=== PATIENT | male | born 1960 | race African-American/Black ===

== ENCOUNTER 2018-10-14 16:48 | Inpatient (IN) | payer MEDICAID ==
[~2018-10-14] VITALS: Ht 193 cm; Wt 95.7 kg
[~2018-10-14 16:48] MED LIST: DIAZ10TA PO; FLUT1DIS3 IH; OXYC-662 PO; PHEN100C4 PO; S350 PO
[2018-10-14] MEDS ORDERED: SODIUM CHLORIDE 0.9% 1,000 ML IV ONE (18:45)
[2018-10-14 19:03] LABS: BASOPHILS % 0.6 % (0.0-2.0); EOSINOPHILS % 7.3 % (0.0-5.0); HEMOGLOBIN. 9.5 g/dL (14.0-18.0); LYMPHOCYTES % 38.1 % (20.0-50.0); MEAN CORPUSCULAR HEMOGLOBIN 36.3 pg (28.0-32.0); MEAN CORPUSCULAR VOLUME 107.5 fL (80.0-94.0); MONOCYTES % 12.9 % (2.0-8.0); NEUTROPHILS % 41.1 % (40.0-76.0); PLATELET 160 x1000/uL (130-400); RED BLOOD CELL COUNT 2.61 mill/uL (4.7-6.1); RED CELL DISTRIBUTION WIDTH 15.4 % (11.6-14.6)
[2018-10-14 19:09] LABS: CHLORIDE 109 mEq/L (98-107)
[2018-10-14 19:13] LABS: ETHANOL BLOOD < 10 mg/dL
[2018-10-14 19:14] LABS: INR 1.1; PARTIAL THROMBOPLASTIN TIME 30.6 sec (23.4-31.0); PROTHROMBIN TIME 11.8 sec (9.6-11.0)
[2018-10-14 19:40] LABS: CLARITY URINE CLOUDY (CLEAR); COLOR URINE YELLOW (YELLOW); KETONES URINE NEGATIVE (NEGATIVE); LEUKOCYTE ESTERASE URINE 3+ (NEGATIVE); NITRITE URINE POSITIVE (NEGATIVE); OCCULT BLOOD URINE TRACE (NEGATIVE); PH URINE 6.5 (4.5-8.0); PROTEIN URINE 2+ (NEGATIVE); SPECIFIC GRAVITY URINE 1.013 (1.005-1.030); UROBILINOGEN URINE 0.2 E.U./dL (0.2-1.0)
[2018-10-14 19:41] LABS: CARBAMAZEPINE < 0.5 ug/mL (4-12); PHENOBARBITAL < 2.1 ug/mL (15.0-40.0)
[2018-10-14] MEDS ORDERED: CEFTRIAXONE 1 G PREMIX 50 ML IV ONE (20:45)
[2018-10-14] MEDS ORDERED: NA PHOS,M-B/NA PHOS,DI-BA ENEMA 118ML PR PRN (23:45)
[2018-10-14] MEDS ORDERED: ACETAMINOPHEN 325MG TABLET PO PRN (23:45)
[2018-10-14] MEDS ORDERED: MAGNESIUM/ALUMINUM HYDROXIDE/SIMETHICONE 30ML UDC PO PRN (23:45)
[2018-10-14] MEDS ORDERED: ONDANSETRON HCL 4MG/2ML INJ IV PRN (23:45)
[2018-10-14] MEDS ORDERED: IPRATROPIUM/ALBUTEROL 0.5-3(2.5)MG/3ML NEB INH PRN (23:45)
[2018-10-14] MEDS ORDERED: ACETAMINOPHEN 650MG SUPP PR PRN (23:45)
[2018-10-14] MEDS ORDERED: DOCUSATE SODIUM 100MG CAPSULE PO PRN (23:45)
[2018-10-14] MEDS ORDERED: GUAIFENESIN 200MG/10ML SUGAR FREE UDC PO PRN (23:45)
[2018-10-14] MEDS ORDERED: DIPHENHYDRAMINE 50MG/ML VIAL IV PRN (23:45)
[2018-10-14] MEDS ORDERED: ACETAMINOPHEN 650MG/20.3ML UDC GT PRN (23:45)
[2018-10-14] MEDS ORDERED: CEFTRIAXONE 1 G PREMIX 50 ML IV SCH (23:45)
[2018-10-15 02:10] VITALS: BP 170/100
[2018-10-15] MEDS: CLONIDINE 0.1MG TABLET PO PRN ×2 (03:49→23:55)
[2018-10-15 04:00] VITALS: BP 126/85
[2018-10-15] MEDS ORDERED: SODIUM CHLORIDE 0.45% 1,000 ML IV SCH (04:30)
[2018-10-15] MEDS ORDERED: FERR325T6 PO (04:39)
[2018-10-15] MEDS ORDERED: AMIT75TA2 PO (04:39)
[2018-10-15] MEDS ORDERED: FURO20TA4 PO (04:39)
[2018-10-15] MEDS ORDERED: TAMS-11 PO (04:39)
[2018-10-15] MEDS ORDERED: DIVA500T51 PO (04:39)
[2018-10-15] MEDS ORDERED: ABAC1TAB14 PO (04:39)
[2018-10-15 05:03] LABS: CLARITY URINE CLOUDY (CLEAR); COLOR URINE YELLOW (YELLOW); KETONES URINE NEGATIVE (NEGATIVE); LEUKOCYTE ESTERASE URINE 3+ (NEGATIVE); NITRITE URINE NEGATIVE (NEGATIVE); OCCULT BLOOD URINE TRACE (NEGATIVE); PH URINE 6.5 (4.5-8.0); PROTEIN URINE 2+ (NEGATIVE); SPECIFIC GRAVITY URINE 1.012 (1.005-1.030); UROBILINOGEN URINE 0.2 E.U./dL (0.2-1.0)
[2018-10-15 05:31] LABS: *AMPHETAMINES SCREEN URINE NEGATIVE (NEGATIVE); *BARBITURATES SCREEN URINE NEGATIVE (NEGATIVE); *BENZODIAZEPINES SCREEN URINE NEGATIVE (NEGATIVE); *COCAINE SCREEN URINE NEGATIVE (NEGATIVE)
[2018-10-15 05:32] LABS: CANNABINOID URINE SCREEN NEGATIVE (NEGATIVE); METHADONE URINE SCREEN NEGATIVE (NEGATIVE); OPIATES URINE SCREEN NEGATIVE (NEGATIVE); PHENCYCLIDINE URINE SCREEN NEGATIVE (NEGATIVE)
[2018-10-15] MEDS: SODIUM CHLORIDE 0.9% INJ 3ML FLUSH IVF SCH ×3 (06:16→21:09)
[2018-10-15 08:00] VITALS: BP 118/80
[2018-10-15] MEDS: LACTULOSE 20G/30ML UDC PO SCH ×2 (08:00→10:25)
[2018-10-15] MEDS: SODIUM CHLORIDE 0.45% 1,000 ML IV SCH ×2 (08:34→23:52)
[2018-10-15] MEDS ORDERED: SODIUM POLYSTYRENE SULFONATE 15 G/60 ML BOT PO SCH (09:00)
[2018-10-15 09:32] LABS: BASOPHILS % 0.5 % (0.0-2.0); EOSINOPHILS % 8.2 % (0.0-5.0); HEMATOCRIT. 27.5 % (42.0-52.0); HEMOGLOBIN. 9.2 g/dL (14.0-18.0); LYMPHOCYTES % 40.2 % (20.0-50.0); MEAN CORPUSCULAR HEMOGLOBIN 35.9 pg (28.0-32.0); MEAN CORPUSCULAR VOLUME 107.4 fL (80.0-94.0); MEAN PLATELET VOLUME 8.7 fl (7.4-10.4); MONOCYTES % 14.1 % (2.0-8.0); PLATELET 147 x1000/uL (130-400); RED BLOOD CELL COUNT 2.57 mill/uL (4.7-6.1); RED CELL DISTRIBUTION WIDTH 15.9 % (11.6-14.6)
[2018-10-15] MEDS: HYDROCODONE/ACETAMINOPHEN 5/325MG TABLET PO PRN ×2 (09:56→21:10)
[2018-10-15 10:41] LABS: CHLORIDE 113 mEq/L (98-107)
[2018-10-15 10:56] LABS: LDL CHOLESTEROL 79 mg/dL (5-100)
[2018-10-15 10:59] LABS: HDL CHOLESTEROL 41 mg/dL (40-59)
[2018-10-15 12:00] VITALS: BP 121/76
[2018-10-15] MEDS ORDERED: DIVALPROEX SODIUM 500MG ER TABLET PO SCH ×2 (15:30→22:00)
[2018-10-15] MEDS: ENOXAPARIN 30MG/0.3ML SYR SUBCUT SCH (15:48)
[2018-10-15] MEDS: FINASTERIDE 5MG TABLET PO SCH (15:48)
[2018-10-15 16:00] VITALS: BP 146/90
[2018-10-15] MEDS: TAMSULOSIN 0.4 MG CAPSULE PO SCH (16:00)
[2018-10-15] MEDS ORDERED: TRIUMEQ PO SCH (16:00)
[2018-10-15] MEDS: DIVALPROEX PO SCH (16:00)
[2018-10-15] MEDS: TRIUMEQ TABLET PO SCH (16:00)
[2018-10-15] MEDS ORDERED: GENTAMICIN 120MG PREMIX 100 ML IV NR (16:00)
[2018-10-15] MEDS: SODIUM BICARBONATE 650 MG TABLET PO SCH (16:56)
[2018-10-15 20:33] VITALS: BP_SYST 146; BP_SYST 155; BP_DIAS 95; BP_DIAS 97
[2018-10-15] MEDS ORDERED: TAMSULOSIN HCL 0.4MG SR CAPSULE PO SCH ×2 (21:00→22:00)
[2018-10-15] MEDS ORDERED: AMITRIPTYLINE 25MG TABLET PO SCH (21:00)
[2018-10-15] MEDS ORDERED: CEFTRIAXONE 1 G PREMIX 50 ML IV SCH (22:00)
[2018-10-15] MEDS ORDERED: MEDICATION NOT ON FORMULARY EA (Abacavir/Dolutegravir/Lamivudi (Triumeq Tablet) 1 EACH) PO SCH (22:00)
[2018-10-16] VITALS: BP 163/102
[2018-10-16 04:00] VITALS: BP 143/92
[2018-10-16] MEDS: SODIUM CHLORIDE 0.9% INJ 3ML FLUSH IVF SCH (05:19)
[2018-10-16 08:00] VITALS: BP_SYST 141; BP_SYST 156; BP_DIAS 90; BP_DIAS 93
[2018-10-16] MEDS: ENOXAPARIN 30MG/0.3ML SYR SUBCUT SCH (08:57)
[2018-10-16] MEDS: FINASTERIDE 5MG TABLET PO SCH (08:57)
[2018-10-16] MEDS: SODIUM BICARBONATE 650 MG TABLET PO SCH (08:57)
[2018-10-16] MEDS: DIVALPROEX PO SCH (08:58)
[2018-10-16] MEDS: TRIUMEQ TABLET PO SCH (08:58)
[2018-10-16] MEDS: TAMSULOSIN 0.4 MG CAPSULE PO SCH (09:00)
[2018-10-16 09:01] LABS: HEMATOCRIT. 28.6 % (42.0-52.0); HEMOGLOBIN. 9.3 g/dL (14.0-18.0); MEAN CORPUSCULAR HEMOGLOBIN 35.2 pg (28.0-32.0); MEAN CORPUSCULAR VOLUME 107.5 fL (80.0-94.0); MEAN PLATELET VOLUME 8.8 fl (7.4-10.4); PLATELET 151 x1000/uL (130-400); RED BLOOD CELL COUNT 2.66 mill/uL (4.7-6.1); RED CELL DISTRIBUTION WIDTH 15.2 % (11.6-14.6)
[2018-10-16 09:32] LABS: CHLORIDE 112 mEq/L (98-107)
[2018-10-16 09:39] LABS: PHOSPHORUS 3.7 mg/dL (2.5-4.9)
[2018-10-16 09:45] LABS: TOTAL IRON BINDING CAPACITY 240 ug/dL (250-450)
[2018-10-16 12:00] VITALS: BP 149/92
[2018-10-16] MEDS ORDERED: SODIUM POLYSTYRENE SULFONATE 15 G/60 ML BOT PO NR (12:00)
[2018-10-16 14:45] LABS: PLATELET ESTIMATE NORMAL
[2018-10-16] MEDS ORDERED: FUROSEMIDE 20MG TABLET PO SCH (15:15)
[2018-10-16] MEDS ORDERED: FLUDROCORTISONE ACETATE 0.1MG TABLET PO SCH (15:15)
[2018-10-16] MEDS ORDERED: COSYNTROPIN 0.25MG/ML VIAL IV SCH (17:00)
[2018-10-16] MEDS ORDERED: NITROFURANTOIN 100MG M/M CAPSULE PO SCH (21:00)
[2018-10-16] MEDS ORDERED: TAMSULOSIN HCL 0.4MG SR CAPSULE PO SCH (21:00)
[2018-10-16] MEDS ORDERED: AMITRIPTYLINE 50MG TABLET PO SCH (21:00)
== END 2018-10-16 16:20 | disposition left against medical advice (07) | DRG 469 ==
LOC: ER 16:48 → EDBEDREQ 20:48 → 8WST 21:25 → EDBEDREQ 21:30 → EDBEDREQTM 21:30 → ENRESERV 22:53
PROVIDERS: ADMIT Family Medicine; ATTEND Family Medicine
DX: N17.9 Acute kidney failure, unspecified (principal); E11.22 Type 2 diabetes mellitus with diabetic chronic kidney disease; E87.2 Acidosis; N18.4 Chronic kidney disease, stage 4 (severe); R55 Syncope and collapse; E87.5 Hyperkalemia; I12.9 Hypertensive chronic kidney disease with stage 1 through stage 4 chronic kidney disease, or unspecified chronic kidney disease; N39.0 Urinary tract infection, site not specified; G40.909 Epilepsy, unspecified, not intractable, without status epilepticus; N40.0 Benign prostatic hyperplasia without lower urinary tract symptoms; J45.909 Unspecified asthma, uncomplicated; E78.5 Hyperlipidemia, unspecified; Z60.2 Problems related to living alone; B19.20 Unspecified viral hepatitis C without hepatic coma; D53.9 Nutritional anemia, unspecified; B96.20 Unspecified Escherichia coli [E. coli] as the cause of diseases classified elsewhere; Z16.12 Extended spectrum beta lactamase (ESBL) resistance; I82.503 Chronic embolism and thrombosis of unspecified deep veins of lower extremity, bilateral; Z79.52 Long term (current) use of systemic steroids; Z79.899 Other long term (current) drug therapy; Z82.49 Family history of ischemic heart disease and other diseases of the circulatory system; Z83.3 Family history of diabetes mellitus; Z88.0 Allergy status to penicillin; Z98.84 Bariatric surgery status; Z86.19 Personal history of other infectious and parasitic diseases; Z88.8 Allergy status to other drugs, medicaments and biological substances; Z88.2 Allergy status to sulfonamides; Z87.440 Personal history of urinary (tract) infections; Z53.21 Procedure and treatment not carried out due to patient leaving prior to being seen by health care provider; Z21 Asymptomatic human immunodeficiency virus [HIV] infection status
CPT/HCPCS: 36415; 71045; 80061; 80156; 80165; 80184; 80185; 80305; 80320; 82533; 83540; 83550; 83605; 83735; 83880; 84100; 84443; 84484; 87077; 87186; 93005; 93306; 96365; 96366; 99285; J0696; J0834; J1580; J1650; J7030; G0480

== ENCOUNTER 2021-04-16 19:37 | Inpatient (IN) | payer MEDICAID ==
[~2021-04-16] VITALS: Ht 193 cm; Wt 75.7 kg
[~2021-04-16 19:37] MED LIST changes: +ABAC1TAB14 PO; +AMIT75TA2 PO; -DIAZ10TA PO; +DIVA500T51 PO; +FERR325T6 PO; -FLUT1DIS3 IH; +FURO20TA4 PO; -OXYC-662 PO; -PHEN100C4 PO; -S350 PO; +TAMS-11 PO
[2021-04-16 21:17] LABS: BASOPHILS % 0.3 % (0.0-2.0); EOSINOPHILS % 4.9 % (0.0-5.0); HEMATOCRIT. 22.2 % (42.0-52.0); HEMOGLOBIN. 7.3 g/dL (14.0-18.0); LYMPHOCYTES % 34.3 % (20.0-50.0); MEAN CORPUSCULAR HEMOGLOBIN 31.7 pg (28.0-32.0); MEAN CORPUSCULAR VOLUME 96.1 fL (80.0-94.0); MEAN PLATELET VOLUME 7.8 fl (7.4-10.4); MONOCYTES % 8.8 % (2.0-8.0); NEUTROPHILS % 51.7 % (40.0-76.0); PLATELET 238 x1000/uL (130-400); RED BLOOD CELL COUNT 2.31 mill/uL (4.7-6.1); RED CELL DISTRIBUTION WIDTH 17.9 % (11.6-14.6)
[2021-04-16 21:21] LABS: CHLORIDE 105 mEq/L (98-107)
[2021-04-16 21:26] LABS: ETHANOL BLOOD < 10 mg/dL
[2021-04-16] MEDS ORDERED: SODIUM CHLORIDE 0.9% 1,000 ML IV ONE (22:45)
[2021-04-17] MEDS: TAMSULOSIN HCL 0.4MG SR CAPSULE PO SCH (18:11)
[2021-04-17] MEDS: PHENYTOIN SODIUM EXTENDED 100MG CAPSULE PO SCH ×2 (18:11→22:00)
[2021-04-17] MEDS ORDERED: EPOETIN ALFA-EPBX 10,000 UNIT/ML VIAL SUBCUT SCH (21:00)
[2021-04-17 23:44] VITALS: BP 108/72
[2021-04-18] VITALS (11 sets, daily range): BP systolic 96–158; BP diastolic 52–92
[2021-04-18 00:37] LABS: BASOPHILS % 0.8 % (0.0-2.0); LYMPHOCYTES % 43.3 % (20.0-50.0); MEAN CORPUSCULAR HEMOGLOBIN 31.9 pg (28.0-32.0); MEAN CORPUSCULAR VOLUME 98.5 fL (80.0-94.0); MEAN PLATELET VOLUME 8.1 fl (7.4-10.4); MONOCYTES % 5.1 % (2.0-8.0); NEUTROPHILS % 43.8 % (40.0-76.0); PLATELET 309 x1000/uL (130-400); RED BLOOD CELL COUNT 1.89 mill/uL (4.7-6.1)
[2021-04-18 00:44] LABS: HEMATOCRIT. 18.6 % (42.0-52.0)
[2021-04-18 01:18] LABS: HEPATITIS B SURFACE ANTIGEN NEGATIVE
[2021-04-18] MEDS: AMITRIPTYLINE 25MG TABLET PO SCH ×2 (01:29→20:29)
[2021-04-18] MEDS: PHENYTOIN SODIUM EXTENDED 100MG CAPSULE PO SCH ×2 (06:00→08:31)
[2021-04-18] MEDS: TAMSULOSIN HCL 0.4MG SR CAPSULE PO SCH (08:31)
[2021-04-18] MEDS ORDERED: DEXTROSE 50% WATER 50ML SYRINGE IV PRN (09:15)
[2021-04-18] MEDS: DIVALPROEX SODIUM 500MG ER TABLET PO SCH (09:38)
[2021-04-18] MEDS: FUROSEMIDE 20MG TABLET PO SCH (09:38)
[2021-04-18 10:35] LABS: BASOPHILS % 0.7 % (0.0-2.0); EOSINOPHILS % 7.4 % (0.0-5.0); HEMATOCRIT. 23.3 % (42.0-52.0); HEMOGLOBIN. 7.5 g/dL (14.0-18.0); LYMPHOCYTES % 44.5 % (20.0-50.0); MEAN CORPUSCULAR HEMOGLOBIN 30.7 pg (28.0-32.0); MEAN CORPUSCULAR VOLUME 94.7 fL (80.0-94.0); MEAN PLATELET VOLUME 8.2 fl (7.4-10.4); MONOCYTES % 7.4 % (2.0-8.0); PLATELET 269 x1000/uL (130-400); RED BLOOD CELL COUNT 2.46 mill/uL (4.7-6.1); RED CELL DISTRIBUTION WIDTH 18.7 % (11.6-14.6)
[2021-04-18] MEDS: BLOOD SUGAR DIAGNOSTIC STRIP TEST SCH ×3 (11:54→20:31)
[2021-04-18] MEDS: INSULIN LISPRO 100 UNITS/ML SUBCUT SCH ×3 (11:54→20:30)
[2021-04-19] VITALS (7 sets, daily range): BP systolic 97–116; BP diastolic 64–68
[2021-04-19] MEDS: BLOOD SUGAR DIAGNOSTIC STRIP TEST SCH ×3 (06:38→17:00)
[2021-04-19] MEDS: INSULIN LISPRO 100 UNITS/ML SUBCUT SCH ×3 (07:50→17:00)
[2021-04-19] MEDS: TAMSULOSIN HCL 0.4MG SR CAPSULE PO SCH (08:52)
[2021-04-19] MEDS: DIVALPROEX SODIUM 500MG ER TABLET PO SCH (08:52)
[2021-04-19] MEDS: FUROSEMIDE 20MG TABLET PO SCH (08:53)
[2021-04-19 16:09] LABS: BASOPHILS % 0.6 % (0.0-2.0); EOSINOPHILS % 6.2 % (0.0-5.0); HEMATOCRIT. 28.6 % (42.0-52.0); HEMOGLOBIN. 8.9 g/dL (14.0-18.0); LYMPHOCYTES % 45.7 % (20.0-50.0); MEAN CORPUSCULAR HEMOGLOBIN 29.3 pg (28.0-32.0); MEAN CORPUSCULAR VOLUME 93.7 fL (80.0-94.0); MONOCYTES % 8.4 % (2.0-8.0); NEUTROPHILS % 39.1 % (40.0-76.0); PLATELET 269 x1000/uL (130-400); RED BLOOD CELL COUNT 3.06 mill/uL (4.7-6.1); RED CELL DISTRIBUTION WIDTH 19.6 % (11.6-14.6)
[2021-04-19 16:22] LABS: PHOSPHORUS 4.5 mg/dL (2.5-4.9)
[2021-04-20 13:06] LABS: IMMUNOGLOBULIN A 708 mg/dL (61-437); IMMUNOGLOBULIN G 5917 mg/dL (603-1613); IMMUNOGLOBULIN M 59 mg/dL (20-172)
== END 2021-04-19 21:53 | disposition home or self-care (01) | DRG 892 ==
LOC: ER 19:37 → MICUSO 23:40 → 6WST 04-17 21:12
PROVIDERS: ADMIT Hospitalist; ATTEND Hospitalist
PROC: 5A1D70Z Performance of Urinary Filtration, Intermittent, Less than 6 Hours Per Day (ICD-10-PCS; principal; 2021-04-17)
PROC: 30233N1 Transfusion of Nonautologous Red Blood Cells into Peripheral Vein, Percutaneous Approach (ICD-10-PCS; 2021-04-18)
DX: G40.909 Epilepsy, unspecified, not intractable, without status epilepticus (principal); B20 Human immunodeficiency virus [HIV] disease; N18.6 End stage renal disease; E43 Unspecified severe protein-calorie malnutrition; I12.0 Hypertensive chronic kidney disease with stage 5 chronic kidney disease or end stage renal disease; L97.909 Non-pressure chronic ulcer of unspecified part of unspecified lower leg with unspecified severity; E11.22 Type 2 diabetes mellitus with diabetic chronic kidney disease; D64.9 Anemia, unspecified; B19.20 Unspecified viral hepatitis C without hepatic coma; Z20.822 Contact with and (suspected) exposure to COVID-19; Z99.2 Dependence on renal dialysis; J45.909 Unspecified asthma, uncomplicated; N40.0 Benign prostatic hyperplasia without lower urinary tract symptoms; Z83.3 Family history of diabetes mellitus; Z86.718 Personal history of other venous thrombosis and embolism; Z86.73 Personal history of transient ischemic attack (TIA), and cerebral infarction without residual deficits; Z88.0 Allergy status to penicillin; Z88.8 Allergy status to other drugs, medicaments and biological substances; Z68.20 Body mass index [BMI] 20.0-20.9, adult
CPT/HCPCS: 36415; 71045; 80048; 80053; 80185; 80320; 82784; 82962; 83036; 83735; 84100; 85025; 86334; 86705; 86709; 86803; 86850; 86900; 86920; 87340; 87426; 93005; 99285; J0885; J7030; J7040; P9016; G0480

== ENCOUNTER 2021-05-04 20:00 | Inpatient (IN) | payer MEDICAID ==
[~2021-05-04] VITALS: Ht 193 cm; Wt 75.7 kg
[2021-05-04] MEDS ORDERED: LEVETIRACETAM 500MG PREMIX 100 ML IV ONE (20:30)
[2021-05-04] MEDS ORDERED: LEVOFLOXACIN 750MG PREMIX 150 ML IV ONE (20:30)
[2021-05-04 21:50] LABS: CHLORIDE 101 mEq/L (98-107)
[2021-05-04 21:55] LABS: BASOPHILS % 0.4 % (0.0-2.0); EOSINOPHILS % 4.9 % (0.0-5.0); HEMATOCRIT. 29.1 % (42.0-52.0); HEMOGLOBIN. 9.5 g/dL (14.0-18.0); MEAN CORPUSCULAR HEMOGLOBIN 30.4 pg (28.0-32.0); MEAN CORPUSCULAR VOLUME 93.3 fL (80.0-94.0); MONOCYTES % 6.5 % (2.0-8.0); NEUTROPHILS % 63.2 % (40.0-76.0); RED BLOOD CELL COUNT 3.12 mill/uL (4.7-6.1)
[2021-05-04 22:15] LABS: MEAN PLATELET VOLUME 9.3 fl (7.4-10.4); PLATELET 144 x1000/uL (130-400)
[2021-05-04] MEDS ORDERED: SODIUM CHLORIDE 0.9% 1000ML BAG (SEPSIS BOLUS) IV ONE (22:15)
[2021-05-04] MEDS ORDERED: VALPROIC ACID 250MG CAPSULE PO ONE (22:45)
[2021-05-05 06:05] LABS: CLARITY URINE CLEAR (CLEAR); COLOR URINE YELLOW (YELLOW); KETONES URINE NEGATIVE (NEGATIVE); LEUKOCYTE ESTERASE URINE NEGATIVE (NEGATIVE); NITRITE URINE NEGATIVE (NEGATIVE); OCCULT BLOOD URINE TRACE (NEGATIVE); PH URINE >=9.0 (4.5-8.0); PROTEIN URINE 2+ (NEGATIVE); SPECIFIC GRAVITY URINE 1.012 (1.005-1.030); UROBILINOGEN URINE 0.2 E.U./dL (0.2-1.0)
[2021-05-05 09:00] VITALS: BP 102/68
[2021-05-05] MEDS ORDERED: ACETAMINOPHEN 325MG TABLET PO PRN (09:15)
[2021-05-05] MEDS ORDERED: ONDANSETRON HCL 4MG/2ML INJ IV PRN (09:15)
[2021-05-05 11:03] VITALS: BP 102/68
[2021-05-05 12:00] VITALS: BP 98/60
[2021-05-05 12:52] LABS: BASOPHILS % 0.4 % (0.0-2.0); EOSINOPHILS % 7.9 % (0.0-5.0); HEMATOCRIT. 23.5 % (42.0-52.0); HEMOGLOBIN. 7.7 g/dL (14.0-18.0); LYMPHOCYTES % 13.3 % (20.0-50.0); MEAN CORPUSCULAR HEMOGLOBIN 30.4 pg (28.0-32.0); MEAN CORPUSCULAR VOLUME 93.4 fL (80.0-94.0); MEAN PLATELET VOLUME 8.2 fl (7.4-10.4); MONOCYTES % 6.8 % (2.0-8.0); NEUTROPHILS % 71.6 % (40.0-76.0); PLATELET 151 x1000/uL (130-400); RED BLOOD CELL COUNT 2.52 mill/uL (4.7-6.1); RED CELL DISTRIBUTION WIDTH 19.9 % (11.6-14.6)
[2021-05-05 16:00] VITALS: BP 109/58
[2021-05-05 20:00] VITALS: BP 112/78
[2021-05-05] MEDS: LEVOFLOXACIN 250MG PREMIX 50 ML IV SCH (21:57)
[2021-05-05] MEDS: EPOETIN ALFA-EPBX 10,000 UNIT/ML VIAL SUBCUT SCH (22:43)
[2021-05-06] VITALS: BP 105/73
[2021-05-06 04:00] VITALS: BP 98/58
[2021-05-06 08:00] VITALS: BP 92/56
[2021-05-06] MEDS: LEVETIRACETAM 500MG TABLET PO SCH ×2 (09:17→17:00)
[2021-05-06 12:00] VITALS: BP 96/68
[2021-05-06] MEDS: SODIUM CHLORIDE 0.9% 1,000 ML IV SCH (14:45)
[2021-05-06 15:34] LABS: HEMATOCRIT. 22.7 % (42.0-52.0); HEMOGLOBIN. 7.5 g/dL (14.0-18.0); MEAN CORPUSCULAR HEMOGLOBIN 30.8 pg (28.0-32.0); MEAN CORPUSCULAR VOLUME 93.8 fL (80.0-94.0); MEAN PLATELET VOLUME 8.5 fl (7.4-10.4); PLATELET 174 x1000/uL (130-400); RED BLOOD CELL COUNT 2.42 mill/uL (4.7-6.1); RED CELL DISTRIBUTION WIDTH 19.6 % (11.6-14.6)
[2021-05-06 15:52] LABS: PHOSPHORUS 3.1 mg/dL (2.5-4.9)
[2021-05-06 16:00] VITALS: BP 128/87
[2021-05-06 16:23] LABS: PLATELET ESTIMATE NORMAL
[2021-05-06 16:54] LABS: HEPATITIS B SURFACE ANTIGEN NEGATIVE
[2021-05-06] MEDS ORDERED: LEVO250T58 MT (19:10)
[2021-05-06 20:00] VITALS: BP 117/76
[2021-05-06] MEDS: LEVOFLOXACIN 250MG PREMIX 50 ML IV SCH (22:00)
[2021-05-07] VITALS: BP 122/81
[2021-05-07 04:00] VITALS: BP 106/56
[2021-05-07 07:19] LABS: PHOSPHORUS 3.5 mg/dL (2.5-4.9)
[2021-05-07 07:25] LABS: BASOPHILS % 0.6 % (0.0-2.0); EOSINOPHILS % 5.7 % (0.0-5.0); HEMATOCRIT. 23.8 % (42.0-52.0); HEMOGLOBIN. 7.9 g/dL (14.0-18.0); LYMPHOCYTES % 30.3 % (20.0-50.0); MEAN CORPUSCULAR HEMOGLOBIN 30.8 pg (28.0-32.0); MEAN CORPUSCULAR VOLUME 92.9 fL (80.0-94.0); MONOCYTES % 10.7 % (2.0-8.0); NEUTROPHILS % 52.7 % (40.0-76.0); PLATELET 211 x1000/uL (130-400); RED BLOOD CELL COUNT 2.56 mill/uL (4.7-6.1); RED CELL DISTRIBUTION WIDTH 19.8 % (11.6-14.6)
[2021-05-07 08:00] VITALS: BP 109/85
[2021-05-07] MEDS: LEVETIRACETAM 500MG TABLET PO SCH ×2 (09:29→18:53)
[2021-05-07] MEDS ORDERED: HYDROCODONE/ACETAMINOPHEN 5/325MG TABLET PO PRN (11:00)
[2021-05-07] MEDS: SODIUM CHLORIDE 0.9% 1,000 ML IV SCH (11:09)
[2021-05-07] MEDS ORDERED: NALOXONE HCL 0.4MG/ML VIAL IV PRN (11:15)
[2021-05-07 12:00] VITALS: BP 130/92
[2021-05-07 16:00] VITALS: BP 107/76
[2021-05-07] MEDS ORDERED: DIGOXIN 500MCG/2ML AMP IV NR (17:15)
[2021-05-07 20:00] VITALS: BP 124/69
[2021-05-08] VITALS: BP 130/50
[2021-05-08] MEDS: LEVOFLOXACIN 250MG PREMIX 50 ML IV SCH (01:10)
[2021-05-08] MEDS: EPOETIN ALFA-EPBX 10,000 UNIT/ML VIAL SUBCUT SCH (01:15)
[2021-05-08] MEDS: METOPROLOL TARTRATE 25MG TABLET PO SCH ×2 (01:15→11:10)
[2021-05-08 04:00] VITALS: BP 124/96
[2021-05-08 08:00] VITALS: BP 132/85
[2021-05-08] MEDS: LEVETIRACETAM 500MG TABLET PO SCH ×2 (10:59→18:43)
[2021-05-08 12:00] VITALS: BP 126/74
[2021-05-08 15:53] LABS: PHOSPHORUS 2.8 mg/dL (2.5-4.9)
[2021-05-08 15:56] LABS: HEMATOCRIT. 23.6 % (42.0-52.0); HEMOGLOBIN. 7.7 g/dL (14.0-18.0); MEAN CORPUSCULAR HEMOGLOBIN 30.4 pg (28.0-32.0); MEAN CORPUSCULAR VOLUME 93.3 fL (80.0-94.0); PLATELET 185 x1000/uL (130-400); RED BLOOD CELL COUNT 2.53 mill/uL (4.7-6.1); RED CELL DISTRIBUTION WIDTH 19.7 % (11.6-14.6)
[2021-05-08 16:00] VITALS: BP 128/78
[2021-05-08 17:50] LABS: PLATELET ESTIMATE NORMAL
[2021-05-08] MEDS ORDERED: LEVOFLOXACIN 250MG TABLET PO SCH (18:00)
[2021-05-08 20:19] VITALS: BP 122/79
[2021-05-08] MEDS ORDERED: METOPROLOL TARTRATE 50MG TABLET PO SCH (21:00)
[2021-05-08] MEDS ORDERED: LEVO50TA MT (21:24)
[2021-05-09] MEDS ORDERED: LEVOTHYROXINE SODIUM 50MCG TABLET PO SCH (07:10)
== END 2021-05-08 22:37 | disposition home or self-care (01) | DRG 890 ==
LOC: ER 20:00 → MICUSO 22:06 → 8WST 05-05 09:25
PROVIDERS: ADMIT Internal Medicine; ATTEND Internal Medicine
PROC: 5A1D70Z Performance of Urinary Filtration, Intermittent, Less than 6 Hours Per Day (ICD-10-PCS; principal; 2021-05-05)
PROC: 5A1D70Z Performance of Urinary Filtration, Intermittent, Less than 6 Hours Per Day (ICD-10-PCS; 2021-05-07)
DX: A41.9 Sepsis, unspecified organism (principal); B20 Human immunodeficiency virus [HIV] disease; N18.6 End stage renal disease; E43 Unspecified severe protein-calorie malnutrition; L89.154 Pressure ulcer of sacral region, stage 4; L89.220 Pressure ulcer of left hip, unstageable; L89.314 Pressure ulcer of right buttock, stage 4; L89.893 Pressure ulcer of other site, stage 3; E11.22 Type 2 diabetes mellitus with diabetic chronic kidney disease; E87.1 Hypo-osmolality and hyponatremia; D64.9 Anemia, unspecified; J45.909 Unspecified asthma, uncomplicated; J98.11 Atelectasis; N40.0 Benign prostatic hyperplasia without lower urinary tract symptoms; Z20.822 Contact with and (suspected) exposure to COVID-19; G40.909 Epilepsy, unspecified, not intractable, without status epilepticus; B19.20 Unspecified viral hepatitis C without hepatic coma; Z83.3 Family history of diabetes mellitus; Z88.0 Allergy status to penicillin; Z99.2 Dependence on renal dialysis; Z82.49 Family history of ischemic heart disease and other diseases of the circulatory system; Z86.718 Personal history of other venous thrombosis and embolism; I69.344 Monoplegia of lower limb following cerebral infarction affecting left non-dominant side; I69.341 Monoplegia of lower limb following cerebral infarction affecting right dominant side; Z68.20 Body mass index [BMI] 20.0-20.9, adult; Z88.8 Allergy status to other drugs, medicaments and biological substances; Z88.6 Allergy status to analgesic agent; Z79.899 Other long term (current) drug therapy
CPT/HCPCS: 36415; 71045; 80048; 80053; 80165; 81003; 82040; 82550; 82962; 83605; 83735; 83880; 84100; 84134; 84145; 84443; 84484; 85025; 86705; 86709; 86803; 87340; 87426; 93005; 93306; 97162; 99291; J0885; J1160; J1953; J1956; J7030; A4315